=== PATIENT | female | born 1970 | race Two or more races ===

== ENCOUNTER 2025-04-03 16:29 | Emergency (ER) | payer MEDICAID, SELFPAY ==
[2025-04-03 16:31] VITALS: BMI 22.6
[2025-04-03 16:39] VITALS: BP 132/77; PULSE 89; RESP 18; TEMP 36.8; O2SAT 98
--- NOTE | 2025-04-03 17:48 | XR_ITS ---
Examination: PA lateral chest 2 views Technique: Upright PA lateral chest 2 views Date and time: April 03, 2025 [id number] hours Indications: Fever beginning 3 days ago. Findings: Normal heart size. Lungs are clear. The osseous structures are intact Impression: No active disease.
--- NOTE | 2025-04-03 17:49 | PD.EDRME ---
Rapid Medical Screening Exam E Arrival date/time: 04/03/25 16:29 This is a 54-year-old female that comes into the emergency room with complaints of fever for the past 9 days. Patient was seen by her primary doctor approximately a week ago and was diagnosed with a throat infection per patient. Patient was put on amoxicillin and she states she has like 2 more days of antibiotics. Patient states she still has a fever she has back pain. Patient reports history of diabetes, anemia, high blood pressure, diabetes and depression. I have greeted and performed a focused initial assessment of this patient. Initial appropriate labs ordered at this time. A comprehensive ED assessment and evaluation of the patient and analysis of all test and completion of medical decision making process will be conducted by additional ED provider. Chief Complaint: Flu Like Symptoms Time Seen by Provider: 04/03/25 17:36 Vital signs: Vital Signs Temperature 98.2 F 04/03/25 16:39 Pulse Rate 89 04/03/25 16:39 Respiratory Rate 18 04/03/25 16:39 Blood Pressure 132/77 H 04/03/25 16:39 Pulse Oximetry (%) 98 04/03/25 16:39 Oxygen Delivery Method Room Air 04/03/25 16:39
[2025-04-03 18:49] LABS: Collection Type, Urine Voided
[2025-04-03 19:26] LABS: Amorphous Crystals,Urine Present (Absent); Bilirubin,Urine Negative (Negative); Blood,Urine Negative (Negative); Clarity,Urine Clear (Clear/Hazy); Color,Urine Lt-Yellow (Lt Yel-Yel); Glucose, Urine 4+ (Negative); Ketones,Urine Trace (Negative); Leukocyte Esterase,Urine Positive (Negative); Nitrite,Urine Negative (Negative); PH,Urine 5.5 (5.0-7.0); Protein,Urine Negative (Neg - Trace); RBC,Urine < 1 /hpf (0-3); Specific Gravity,Urine 1.041 (1.001-1.035); Squamous Epithelial Cell,Urine 1 /hpf (0-5); Urobilinogen,Urine Negative mg/dL (0.0-1.0); WBC,Urine 25 /hpf (0-5)
[2025-04-03 19:32] LABS: Culture Indicated,Urine Yes
[2025-04-03 21:31] LABS: Strep A Rapid Negative (Negative)
[2025-04-03 21:40] VITALS: BP 153/91; PULSE 72; RESP 18; TEMP 36.8; O2SAT 98
--- NOTE | 2025-04-03 21:44 | PD.EDADULT ---
ED General RME/HPI General Chief complaint: Flu Like Symptoms Stated complaint: SORE THROAT/COLD x 2 WEEKS, LUNGS HURTING NOW Time Seen by Provider: 04/03/25 17:36 Arrival date/time: 04/03/25 16:29 CC: Fever sore throat HPI ongoing for the past week, patient has been taking antibiotics, amoxicillin, but has had no change in her symptoms. Patient denies chest pain shortness of breath cough painful urination bloody urination diarrhea or constipation. RME / HPI RME / HPI narrative: 04/03/25 16:29 This is a 54-year-old female that comes into the emergency room with complaints of fever for the past 9 days. Patient was seen by her primary doctor approximately a week ago and was diagnosed with a throat infection per patient. Patient was put on amoxicillin and she states she has like 2 more days of antibiotics. Patient states she still has a fever she has back pain. Patient reports history of diabetes, anemia, high blood pressure, diabetes and depression. I have greeted and performed a focused initial assessment of this patient. Initial appropriate labs ordered at this time. A comprehensive ED assessment and evaluation of the patient and analysis of all test and completion of medical decision making process will be conducted by additional ED provider. Related Data Home Medications ?Medication ?Instructions ?Recorded ?Confirmed metoprolol tartrate 50 mg tablet 50 mg PO DAILY #0 tabs 04/18/17 08/24/19 empagliflozin 5 mg-metformin 1,000 1 tab PO BID 01/18/19 08/24/19 mg tablet (Synjardy) sitagliptin phosphate 100 mg 100 mg PO QDAY 01/18/19 08/24/19 tablet (Januvia) trazodone 100 mg tablet 100 mg PO HS 01/18/19 08/24/19 ferrous gluconate 324 mg (37.5 mg 324 mg PO QDAY 08/24/19 08/24/19 iron) tablet Previous Rx's ?Medication ?Instructions ?Recorded amoxicillin 875 mg-potassium 1 tab PO BID #10 tabs 04/03/25 clavulanate 125 mg tablet Allergies Allergy/AdvReac Type Severity Reaction Status Date / Time No Known Allergies Allergy Verified 04/03/25 16:35 Review of Systems Review of Systems Narrative Review of Systems: GEN: + fever, no chills, no weight loss EYES: No discharge, no visual changes, no pain HEENT: No ear pain, no congestion, + sore throat PULM: No shortness of breath, no cough, no congestion CV: No chest pain, no dyspnea on exertion, no palpitations GI: No nausea, no vomiting, no diarrhea, no pain, no constipation : No frequency, no urgency, no dysuria MUSC/SKEL: No joint pain, no back pain SKIN: No rash PSYCH: No hallucinations, no depression HEME/LYMPH: No easy bleeding or bruising tendencies NEURO: No weakness, no headache Past Medical History Past Medical History NEUROLOGIC: Negative Neurological Disorders CARDIAC: Positive Cardiac Disorders and Hypertension (TAKES MED); Negative Congestive Heart Failure RESPIRATORY: Negative Chronic Obstructive Pulmonary Disease (COPD) or Asthma GASTROINTESTINAL: Negative Gastrointestinal Disorders or Hepatitis GENITOURINARY: Negative Genitourinary Disorders or Renal Disease REPRODUCTIVE: Positive Previous Pregnancies (X4) MUSCULOSKELETAL: Negative Musculoskeletal Disorders ENDOCRINE: Positive Endocrine Disorders and Diabetes Mellitus Type 2 (TAKES PO); Negative Diabetes Mellitus Type 1 HEMATOLOGIC: Positive Blood Disorders and Anemia (TAKES MED); Negative Sickle Cell Disease OTHER HISTORY: Negative Hospitalization, Autoimmune Disease, Shingles, Falls, Blood Transfusions, Anesthesia Reactions (NONE), Chemotherapy, Radiation Therapy, MRSA, Chicken Pox, Measles, Mumps or Cancer Family History FAMILY HISTORY: Positive Family Cardiac Disorders (BROTHERS,MOTHER,SISTERS (HTN)) and Family Surgery (SISTER); Negative Family Psychiatric Problems, Family Respiratory Disorders, Family Gastrointestinal Problems, Family Cancer or Family Anesthesia Reaction Social History SMOKING STATUS: Never smoker ED Exam Narrative Physical exam: [General: Not in any acute distress Head normocephalic HEENT: Within acceptable limits Neck is supple nontender Chest equal chest rise nontender to palpation Respiratory: Clear to auscultation no wheezes crackles or rubs CV: Rate rhythm is regular no murmurs rubs or clicks Abdomen is distended secondary to body habitus soft nontender no masses positive bowel sounds all 4 quadrants Back: No CVA tenderness no spinous process tenderness from cervical spine thoracic and lumbar spine Skin: Intact no petechiae rash induration ulceration or crepitus Extremities: Moving all extremity against resistance cap refill less than 2 seconds neurosensory intact Neuro: Awake alert oriented x3 Glascow coma 15 no focal deficits] Course Quality Measures none Orders Category Date Time Status Bedside COVID-19 Antigen Test NOW Care 04/03/25 17:48 Active Bedside Influenza A&B Antigen Test NOW Care 04/03/25 17:49 Completed XR chest 2V Stat Exams 04/03/25 17:48 Completed Strep A Rapid Stat Lab 04/03/25 20:56 Completed Urinalysis, C/S if Indicated Stat Lab 04/03/25 18:10 Completed Urine Culture Stat Lab 04/03/25 18:10 Received Vital Signs Vital signs: Vital Signs Temperature 98.2 F 04/03/25 16:39 Pulse Rate 89 04/03/25 16:39 Respiratory Rate 18 04/03/25 16:39 Blood Pressure 132/77 H 04/03/25 16:39 Pulse Oximetry (%) 98 04/03/25 16:39 Oxygen Delivery Method Room Air 04/03/25 16:39 Discharge Plan Plan Patient Disposition: HOME (Self Care) Patient condition on transfer: Stable Prescriptions/Referrals Prescriptions/Med Rec: New amoxicillin-pot clavulanate 875-125 mg tablet 1 tab PO BID Qty: 10 0RF No Action metoprolol tartrate 50 MG tablet 50 mg PO DAILY Qty: 0 trazodone 100 mg Tablet 100 mg PO HS Januvia 100 mg Tablet 100 mg PO QDAY Synjardy 5-1,000 mg Tablet 1 tab PO BID ferrous gluconate 324 mg (37.5 mg iron) Tablet 324 mg PO QDAY Referrals: Abilio Lion MD [Physician, Family Practice] - In 1 week No Primary/Family,Physician [Primary Care Provider] - In 1 week Problem List Clinical Impression: Fever, UTI (urinary tract infection) Impression comment: Take the medication as prescribed worsening of symptoms follow-up with your primary care doctor. Patient/Caregiver Discharge Instructions Education Materials: ED CYSTITIS Female Adult Print Language: Romanian Stand Alone Forms: Sheila Award Info., Patient Portal Info Letter, Work/School Release PA/MARKETING DIRECTOR ASSISTED LIVING Supervising Physician PA/MARKETING DIRECTOR [employer]ISTED LIVING Supervising Physician: Reyes Perez ENP MDM Clinical Information Provided by patient Medical Records Reviewed [facility] Chronic Illness/Social Conditions which may negatively complicate care or outcome(s)-explain: None or not applicable EKG EKG not done Lab Interpretation Lab(s) interpretation(s): Urine shows 4+ glucose, spec gravity 1.041. Leukocyte esterase +25 WBCs no bacteria Strep is negative Imaging Provider imaging interpretation(s): Chest x-ray as interpreted by me read by radiology as negative for any acute finding. Medication Administration(s) none Diagnosis Differential diagnosis: Strep pharyngitis pneumonia UTI Dispositon Disposition: Discharge Home
== END 2025-04-03 21:54 | disposition home or self-care (01) ==
PROVIDERS: Nurse Practitioner Family; Emergency Provider Emergency Medicine
DX: N39.0 Urinary tract infection, site not specified (principal); R50.9 Fever, unspecified
CPT/HCPCS: 71046; 81001; 87086; 87400; 87651; 87811; 99283